=== PATIENT | male | born 1955 | race Caucasian/White ===

== ENCOUNTER → 2018-11-24 | Outpatient (CLI) | payer OTHER ==
[~2018-11-24] MED LIST: ASPI-715 PO; FLU1 PO; OMEG-11 PO; PRE5 PO
[2018-11-24 09:11] LABS: PLATELET COUNT, AUTOMATED 264 K/uL (150-450)
[2018-11-24 09:59] LABS: LDL CHOLESTEROL 86 mg/dl
== END ==
LOC: LAB 08:56
PROVIDERS: ATTEND Internal Medicine Endocrinology, Diabetes & Metabolism
DX: E27.1 Primary adrenocortical insufficiency (principal)
CPT/HCPCS: 36415; 82024; 82040; 82247; 82310; 82374; 82435; 82465; 82565; 82947; 83718; 84075; 84132; 84155; 84295; 84450; 84460; 84478; 84520; 85025